=== PATIENT | female | born 1960 | race African-American/Black ===

== ENCOUNTER 2016-07-27 13:32 | Emergency (ER) | payer OTHER ==
[~2016-07-27] VITALS: Ht 165.1 cm; Wt 59.1 kg
[~2016-07-27 13:32] MED LIST: BISA10S PR; CARV12 PO; DSSL PO; FAMO20 PO; INSREG SQ; INSU100V12 SQ; LEVE500T8 PO; METO5TAB95 PO; MULT1TAB70 PO; POLY238P2 PO
[2016-07-27 14:07] LABS: GLUCOSE,POINT OF CARE 136 MG/DL (70-110)
[2016-07-27] MEDS ORDERED: BACITRACIN 0.9 GM PACKET OINTMENT TP ONE (15:15)
[2016-07-27 17:25] VITALS: BP 142/87
== END 2016-07-27 18:07 | disposition home or self-care (01) ==
LOC: EMS 13:41
DX: L89.322 Pressure ulcer of left buttock, stage 2 (principal); L08.9 Local infection of the skin and subcutaneous tissue, unspecified; E11.9 Type 2 diabetes mellitus without complications; I10 Essential (primary) hypertension; F17.210 Nicotine dependence, cigarettes, uncomplicated; Z79.4 Long term (current) use of insulin
CPT/HCPCS: 82962; 99283